=== PATIENT | female | born 2000 ===

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

== ENCOUNTER 2018-06-29 13:05 | Outpatient (CLI) | payer BC ==
[~2018-06-29 13:05] MED LIST: Gadobenate Dimeglumine 529 MG/1 ML (20ML VIAL) ONE
--- NOTE | 2018-06-29 15:52 | MRI ---
BRAIN AND PITUITARY GLAND MRI WITH AND WITHOUT CONTRAST: COMPARISON: 07/16/2017, 07/11/2016. TECHNIQUE: A brain and pituitary gland MRI are performed with and without intravenous Gadolinium administration. Multisequential, multiplanar imaging is performed. FINDINGS: The calvarium has a normal T1 marrow signal intensity. Midline brain parenchymal structures are unre markable. No brain parenchymal mass, mass effect, or midline shift. Brain volume is age appropriate. Cortical vazquez-white matter differentiation is preserved. The ventricles and sulci are patent and symmetric. Central arterial flow voids are maintained. Absent restricted diffusion. Adequate aeration of the sinuses and mastoid air cells. Midline brain parenchymal structures are unr emarkable. There is a stable intrinsic T1 hyperdensity involving the pars intermedia with mild anterior displace ment of pituitary gland. There is slight convexity of the pituitary gland. Pituitary stalk is midli ne. There is intrinsic T1 hypointensity with a periphery of hyperintensity. There continues to be n o obvious mass effect upon the optic chiasm, prechiasmatic optic nerves. This lesion measures 0.6 cm anterior posterior x 0.6 cm craniocaudal x 0.7 cm mediolateral. No appreciable change. 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 No appreciable change since 2016. POS: ERVIN
== END 2018-06-29 13:06 | disposition home or self-care (01) ==
LOC: BICMRI 13:05
PROVIDERS: ATTEND Family Medicine
DX: E23.7 Disorder of pituitary gland, unspecified (principal)
CPT/HCPCS: 70553

== ENCOUNTER 2018-10-15 07:31 | Outpatient (CLI) | payer BC ==
--- NOTE | 2018-10-15 09:54 | MRI ---
MRI BRAIN WITH AND WITHOUT CONTRAST: INDICATIONS: Follow up pituitary tumor/mass. COMPARISON: MRI brain and pituitary from 06/29/2018. TECHNIQUE: Multiplanar, multisequential imaging of the brain obtained. Post contrast images were obtained, admi nistered 17 mL of IV MultiHance. A pituitary protocol was followed, with thin coronal and sagittal s ections through the sella turcica. FINDINGS: The ventricles remain normal in size and position. No mass or edema. No white matter abnormality. No restricted diffusion. Imaging of the sella again reveals a small cystic mass, which is intrasellar, measuring approximately 6 mm craniocaudal by 5 to 6 mm in AP dimension, in the sagittal plane. This small, cystic mass is u nchanged from the prior study. There is increased mucosal edema in the sphenoid sinuses today, when compared to the prior study. No other interval change noted. IMPRESSION: 1. Small intrasellar, cystic mass is stable. A par intermedia cyst remains a likely consideration. 2. Increasing mucosal edema in the sphenoid air cells noted today. POS: ASHLEY
[2018-10-15] MEDS ORDERED: Gadobenate Dimeglumine 529 MG/1 ML (20ML VIAL) ONE (11:55)
== END 2018-10-15 07:32 | disposition home or self-care (01) ==
LOC: BICMRI 07:31
PROVIDERS: ATTEND Specialist
DX: D49.7 Neoplasm of unspecified behavior of endocrine glands and other parts of nervous system (principal); E89.3 Postprocedural hypopituitarism; R68.89 Other general symptoms and signs; R60.0 Localized edema
CPT/HCPCS: 70553; A9577

== ENCOUNTER 2019-09-29 13:57 | Outpatient (CLI) | payer BC ==
--- NOTE | 2019-09-29 15:00 | RAD ---
2 VIEWS RIGHT HIP: Date: 09/29/2019 PROVIDED CLINICAL HISTORY: Right hip pain. FINDINGS: There is an abnormal focus of decreased density seen involving the right inferior pubic ramus with jones rrounding sclerosis and associated periosteal reaction at both the cranial and caudal margins of the inferior pubic ramus. Alignment appears anatomic. Right hip joint space appears preserved. Sacroiliac joint is poorly visualized on the basis of overlying bowel gas, but appears irregular. IMPRESSION: 1. Abnormal appearance of the right inferior pubic ramus with surrounding periosteal reaction. Diffe rential considerations would include infection, neoplasm, and possibly healing fracture. Correlation with MRI with and without IV contrast is recommended. 2. Possible right sacroiliitis. POS: THUAN
== END 2019-09-29 13:58 | disposition home or self-care (01) ==
LOC: SCSRAD 13:57
PROVIDERS: ATTEND Family Medicine
DX: M25.551 Pain in right hip (principal)

== ENCOUNTER 2019-10-11 12:32 | Outpatient (CLI) | payer BC ==
--- NOTE | 2019-10-21 19:04 | MRI ---
MRI PELVIS WITH AND WITHOUT CONTRAST: 10/21/19 HISTORY: Fractures. Concern for possible osteomyelitis. COMPARISON: None. FINDINGS: There are healing fractures of the right pubic root, right inferior pubic ramus, right sacral ala at S1, old left sacral ala S1 fracture, and right S2 sacral ala fracture, and right S3 sacral ala fractu re. These are all insufficiency type fractures. The patient has a decreased bone mineral density seen on DEXA scan from 07/02/17. There is edema of the obturator externus muscle. This is due to its attachment of the adjacent fractu re of the inferior pubic ramus. There is also some edema and inflammation along the right pectineus and adductor longus muscles due to what appears to be underlying stress of the pubic body. No free fluid in the pelvis. Normal joint fluid bilaterally. The hamstring tendons are intact. The iliopsoas tendons are intact with small volume right iliopsoas bursitis. IMPRESSION: Imaging features of right S1, S2, and S3 insufficiency fractures involving zone 2 along with healing fracture of the right inferior pubic ramus which gave the abnormal radiographic appearance. There is some stress changes of the right superior pubic ramus extending to the pubic body as well as edema wi th associated inserting muscles. Underlying osteomyelitis is felt less likely given the patient's low bone mineral density seen on a 2018 DEXA exam. There is some fluid tracking along the right obturato r internus muscle from adjacent muscle edema and the right pubic root fracture. POS: HOME
== END 2019-10-11 12:33 | disposition home or self-care (01) ==
LOC: SCSMRI 12:32
PROVIDERS: ATTEND Family Medicine
DX: M86.9 Osteomyelitis, unspecified (principal); M84.454D Pathological fracture, pelvis, subsequent encounter for fracture with routine healing; R60.0 Localized edema
CPT/HCPCS: 72197